=== PATIENT | male | born 1970 | race Native Hawaiian/Other Pacific Islander ===

== ENCOUNTER 2021-08-29 23:20 | Inpatient (IN) | payer OTHER ==
[~2021-08-29] VITALS: Ht 182.9 cm; Wt 86.2 kg
--- NOTE | 2021-08-29 23:37 | NUR ---
Patient's at bedside
[2021-08-29] MEDS ORDERED: LIDOCAINE HCL 1% 20 ML VIAL ONE (23:42)
[2021-08-29] MEDS ORDERED: LIDOCAINE HCL 1% 20 ML VIAL IJ ONE (23:45)
--- NOTE | 2021-08-30 00:21 | NUR ---
Patient is a/ox4, NAD noted.
[2021-08-30] MEDS ORDERED: TDAP DIPH,PERTUSS,TET VAC/PF 0.5 ML DISP.SYRIN IM ONE ×2 (01:30→01:40)
[2021-08-30] MEDS ORDERED: levETIRAcetam 250 MG TABLET PO ONE (01:30)
[2021-08-30] MEDS ORDERED: levETIRAcetam 250 MG TABLET ONE (01:40)
--- NOTE | 2021-08-30 02:07 | NUR ---
called bathhouse keeper for S[facility] bed. Was told no beds available
--- NOTE | 2021-08-30 02:07 | NUR ---
called for CCU bed. no beds available.
--- NOTE | 2021-08-30 02:08 | NUR ---
as per Nereyda, keep patient in ER till change of shift
[2021-08-30] MEDS ORDERED: MAGNESIUM HYDROXIDE 30 ML LIQUID UDC PO PRN (02:15)
[2021-08-30] MEDS ORDERED: HYDROCODONE/APAP 5-325MG TABLET PO PRN (02:15)
[2021-08-30] MEDS ORDERED: DEXTROSE 50% 50 ML DISP.SYRIN IV PRN (02:15)
[2021-08-30] MEDS ORDERED: INSULIN REGULAR, HUMAN 300 UNIT/3 ML VIAL SQ PRN (02:15)
[2021-08-30] MEDS ORDERED: ONDANSETRON 4 MG/2 ML VIAL IV PRN (02:15)
[2021-08-30] MEDS ORDERED: ACETAMINOPHEN 325 MG TABLET PO PRN (02:15)
[2021-08-30] MEDS ORDERED: METF-494 PO (02:17)
--- NOTE | 2021-08-30 02:17 | NUR ---
Patient is able to walk with steady gait
--- NOTE | 2021-08-30 02:18 | NUR ---
Pt doesn't remember all his medications, going home to get medication list, will need further follow up.
[2021-08-30] MEDS ORDERED: HYDROCODONE/APAP 10-325 MG TABLET ONE (02:29)
[2021-08-30] MEDS ORDERED: HYDROCODONE/APAP 10-325 MG TABLET PO ONE (02:30)
--- NOTE | 2021-08-30 02:30 | NUR ---
Patient is able to tolerate fluids
--- NOTE | 2021-08-30 02:30 | NUR ---
as per Dr Madrigal, patient is ok to drink water
[2021-08-30 02:52] LABS: HEMATOCRIT 43.2 % (36.7-47.1); MEAN CORPUSCULAR HEMOGLOBIN 32.8 uug (23.8-33.4); MEAN CORPUSCULAR VOLUME 93.1 fL (73.0-96.2); PLATELET COUNT (AUTO) 239 K/uL (152-348)
[2021-08-30 02:53] LABS: BILIRUBIN,TOTAL 1.1 mg/dL (0.2-1.0); CREATININE 0.9 mg/dL (0.6-1.3); MAGNESIUM 1.9 mg/dL (1.8-2.4); POTASSIUM 4.4 mmol/L (3.5-5.1); TOTAL PROTEIN, SERUM 6.9 g/dL (6.4-8.2)
[2021-08-30] MEDS ORDERED: MELATONIN 3 MG TABLET PO SCH (04:30)
[2021-08-30] MEDS ORDERED: MELATONIN 3 MG TABLET ONE (04:32)
--- NOTE | 2021-08-30 07:13 | NUR ---
PT IS RESTING IN BED COMFORTABLY. NO S/S OF ACUTE DISTRESS AT THIS TIME. CONTINUE TO MONITOR THE PT.
[2021-08-30] MEDS: BLOOD SUGAR DIAGNOSTIC 1 EACH STRIP VI SCH ×2 (07:28→12:10)
--- NOTE | 2021-08-30 09:13 | NUR ---
PT WENT TO RESTROOM. GAIT IS TABLE. NO S/S OF DISTRESS AT THIS TIME. NO SOB. NO N/V. NO DIZZINESS. PT DENIES PAIN. CONTINUE TO MONITOR THE PT.
[2021-08-30] MEDS ORDERED: ONDANSETRON 4 MG/2 ML VIAL ONE (11:07)
[2021-08-30] MEDS ORDERED: HYDROCODONE/APAP 5-325MG TABLET ONE (11:07)
--- NOTE | 2021-08-30 11:34 | NUR ---
DR KISHA RUBIO WAS CALLED , BECAUSE PT WANTS TO LEAVE HOSPITAL AMA. DR KISHA RUBIO SAID PT CAN LEAVE AMA IF PT IS ACCEPTING ALL RISKS OF LEAVING HOSPITAL AMA. ALL RISKS WERE EXPLAINED TO THE PT AND TO HIS . PT AND HIS WERBALISED FULL UNDERSTANDING.
[2021-08-30] MEDS ORDERED: INSULIN REGULAR, HUMAN 300 UNIT/3 ML VIAL ONE (12:12)
--- NOTE | 2021-08-30 12:25 | NUR ---
PT SIGNED AMA FORM AND LEFT HOSPITAL AMA WITH HIS BY CAR. NO S/S OF DISTRESS, NO SOB, NO N/V, NO DIZZINESS, GAIT IS STABLE. PT DENIES PAIN. PT CAN SPEAK IN FULL SENTENCES AND MOVE ALL FOUR EXTREMITIES WITHOUT LIMITATIONS. A/O x TIMES FOUR.
[2021-08-30 12:28] VITALS: BP 133/71
[2021-08-31] MEDS ORDERED: GLIP5POW MC (16:52)
[2021-08-31] MEDS ORDERED: LISI10TA29 PO (16:53)
[2021-08-31] MEDS ORDERED: METO-356 PO (16:54)
[2021-08-31] MEDS ORDERED: ATOR10TA PO (16:54)
== END 2021-08-30 12:28 | disposition left against medical advice (07) | DRG 87 ==
LOC: ER 23:20 → TRANSITION 08-30 09:23
PROVIDERS: ADMIT Nurse Practitioner Acute Care; ATTEND Nurse Practitioner Acute Care
PROC: 0HQ0XZZ Repair Scalp Skin, External Approach (ICD-10-PCS; principal; 2021-08-29)
DX: S06.6X0A Traumatic subarachnoid hemorrhage without loss of consciousness, initial encounter (principal); I10 Essential (primary) hypertension; E11.9 Type 2 diabetes mellitus without complications; S01.01XA Laceration without foreign body of scalp, initial encounter; W19.XXXA Unspecified fall, initial encounter; Y93.9 Activity, unspecified; W01.0XXA Fall on same level from slipping, tripping and stumbling without subsequent striking against object, initial encounter; Y92.009 Unspecified place in unspecified non-institutional (private) residence as the place of occurrence of the external cause; Z79.84 Long term (current) use of oral hypoglycemic drugs; R40.2142 Coma scale, eyes open, spontaneous, at arrival to emergency department; R40.2362 Coma scale, best motor response, obeys commands, at arrival to emergency department; R40.2252 Coma scale, best verbal response, oriented, at arrival to emergency department; Z20.822 Contact with and (suspected) exposure to COVID-19
CPT/HCPCS: 36415; 70450; 72125; 83735; 85025; 85730; 90715; A4663; G0378; G0480; J1815; J2405; J3490

== ENCOUNTER 2021-09-01 14:41 | Emergency (ER) | payer OTHER ==
[~2021-09-01] VITALS: Ht 182.9 cm; Wt 86.2 kg
[~2021-09-01 14:41] MED LIST: ATOR10TA PO; GLIP5POW MC; LISI10TA29 PO; METF-494 PO; METO-356 PO
--- NOTE | 2021-09-01 14:50 | NUR ---
Dr Avina at the bedside for MSE.
--- NOTE | 2021-09-01 14:56 | NUR ---
Dr Avina spoke to Dr Oakley, neuro surgeon.
[2021-09-01 15:15] VITALS: BP 146/90
--- NOTE | 2021-09-01 15:15 | NUR ---
Patient discharged to home in stable condition. Written and verbal after care instructions given. Patient verbalizes understanding of instructions. Stressed follow up or return to ER for worsening s/s.
== END 2021-09-01 15:16 | disposition home or self-care (01) ==
LOC: ER 14:41
DX: S01.01XD Laceration without foreign body of scalp, subsequent encounter (principal); S06.6X9D Traumatic subarachnoid hemorrhage with loss of consciousness of unspecified duration, subsequent encounter; W22.8XXD Striking against or struck by other objects, subsequent encounter; E11.9 Type 2 diabetes mellitus without complications; Z79.84 Long term (current) use of oral hypoglycemic drugs; Z79.899 Other long term (current) drug therapy
CPT/HCPCS: A4663